=== PATIENT | female | born 2000 | race Caucasian/White ===

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

== ENCOUNTER 2021-07-08 16:25 | Emergency (ER) | payer OTHER ==
[~2021-07-08] VITALS: Ht 160 cm; Wt 55.3 kg
[~2021-07-08 16:25] MED LIST changes: +CODE1TAB37 PO; +IBUPROFEN800 MG PO
== END 2021-07-08 20:04 | disposition home or self-care (01) ==
LOC: ER 16:25 → EMR PED 16:29 → ER 16:29 → EMR PED 20:04
DX: B34.9 Viral infection, unspecified (principal); E86.0 Dehydration; R11.10 Vomiting, unspecified; Z20.822 Contact with and (suspected) exposure to COVID-19